=== PATIENT | male | born 1995 | race Caucasian/White ===

== ENCOUNTER → 2018-04-27 08:45 | Outpatient (CLI) | payer OTHER, SELFPAY ==
--- NOTE | 2018-04-27 | DI.MRI.S_ITS ---
PROCEDURE: MR KNEE LT W CON INDICATIONS: PAIN IN LEFT KNEE TECHNIQUE: After the administration of 50 mL of dilute intra-articular Gadolinium contrast, sagittal T1 spin echo with fat saturation and PD fast spin echo with fat saturation, coronal T1 spin echo with and without fat saturation, coronal T2 fast spin echo with fat saturation, axial PD fast spin echo with fat saturation through the knee. COMPARISON: [facility], MR, KNEE WITHOUT CONTRAST, 06/10/2016, 8:12. FINDINGS: Image quality: Excellent. Menisci: There is oblique linear high signal within the posterior horn and body of the medial meniscus involving the intra-articular surface, consistent with tear. The lateral meniscus demonstrates normal morphology and internal signal. The meniscal root ligaments appear intact. Cruciate ligaments: Mild thickening and striated appearance of the anterior cruciate ligament, either secondary to scars or mucoid degeneration. The posterior cruciate ligament appears normal. Medial structures: The medial collateral ligament appears intact. The posterior oblique ligament, semimembranosus tendon insertions, oblique popliteal ligament, and meniscocapsular junction appear intact. Visualized portions of the pes anserinus tendons appear normal. No abnormal bursal fluid. Lateral structures: The lateral collateral ligament, long and short heads of the biceps femoris tendon appear intact. The popliteus tendon appears normal; the popliteofibular ligament appears intact. The posterosuperior and anteroinferior popliteomeniscal fascicles appear intact. The arcuate and fabellofibular ligaments appear intact around the lateral inferior geniculate artery. Iliotibial band appears normal. Anterior structures: The quadriceps and patellar tendons appear intact. Patellar alignment is normal. No femoral trochlear dysplasia or ventral trochlear prominence. No edema in the infrapatellar fat pad. Bone and cartilage: No bone marrow contusions or fractures. The cartilage of the medial and lateral femorotibial compartments, as well as the patellofemoral compartment, appears normal in thickness. Joint space: No Osorio's cyst. Normal appearing synovial plicae are incidentally noted. No intra-articular bodies. IMPRESSION: 1. Oblique tear of the posterior horn and body of the medial meniscus. 2. Scarring or mucoid degeneration of the ACL. Dictated by: Kristine Zaldivar M.D. on 04/27/2018 at 10:22 Approved by: Kristine Zaldivar M.D. on 04/27/2018 at 10:34
--- NOTE | 2018-04-27 08:48 | DI.RAD.S_ITS ---
PROCEDURE: FL KNEE INJECTION MR/CT LT COMPARISON: None. INDICATIONS: PAIN IN LEFT KNEE FINDINGS: After obtaining informed consent the medial left knee area was prepared and draped in sterile fashion and anesthetized with 1% lidocaine. Utilizing sequential fluoroscopic guidance a local anesthesia needle, 25 gauge, was advanced into the knee joint space, positioning was confirmed, and a dilute gadolinium/saline solution was instilled for MR arthrography. IMPRESSION: Successful gadolinium/saline solution instillation into the left knee joint space for MR arthrography subsequently performed. Dictated by: Jj Bower M.D. on 04/27/2018 at 14:28 Approved by: Jj Bower M.D. on 04/27/2018 at 14:29
== END ==
PROVIDERS: Visit Provider Orthopaedic Surgery
DX: M25.562 Pain in left knee (principal); S83.242A Other tear of medial meniscus, current injury, left knee, initial encounter
CPT/HCPCS: 27369; 73722; 77002